=== PATIENT | female | born 2000 | race Two or more races ===

== ENCOUNTER 2025-02-19 17:50 | Emergency (ER) | payer OTHER ==
[~2025-02-19] VITALS: Ht 162.6 cm; Wt 77.1 kg
[2025-02-19] MEDS ORDERED: CEFUROXIME500 MG PO (19:54)
[2025-02-19] MEDS ORDERED: PEPCID AC20 MG PO (19:54)
[2025-02-19] MEDS ORDERED: KETOROLAC TROMETHAMINE 60 MG VIAL IM ONE ×2 (19:58→20:00)
[2025-02-19] MEDS ORDERED: CEFTRIAXONE SODIUM 1,000 MG VIAL ONE (19:58)
[2025-02-19] MEDS ORDERED: CEFTRIAXONE SODIUM 1,000 MG VIAL IM ONE (20:00)
[2025-02-19] MEDS ORDERED: TETANUS & DIPHTHERIA TOX,ADULT 0.5 ML VIAL IM ONE (20:00)
== END 2025-02-19 20:13 | disposition home or self-care (01) ==
LOC: ER 17:51
DX: S60.410A Abrasion of right index finger, initial encounter (principal); W54.0XXA Bitten by dog, initial encounter; Y93.89 Activity, other specified; Y92.89 Other specified places as the place of occurrence of the external cause
CPT/HCPCS: 90471; 90714; J1670

== ENCOUNTER 2025-06-16 07:05 | Emergency (ER) | payer OTHER ==
[~2025-06-16] VITALS: Ht 162.6 cm; Wt 77.1 kg
[~2025-06-16 07:05] MED LIST: CEFUROXIME500 MG PO; PEPCID AC20 MG PO
[2025-06-16] MEDS ORDERED: PHENYLEPHRINE HC OP (07:53)
[2025-06-16] MEDS ORDERED: FAMOtidine 10 MG/ML (4ML VIAL) IV ONE (08:30)
[2025-06-16] MEDS ORDERED: ONDANSETRON HCL 2 MG/ML VIAL IV ONE (08:30)
[2025-06-16] MEDS ORDERED: 0.9 % SODIUM CHLORIDE 1,000 ML IV ONE (08:30)
[2025-06-16 09:18] LABS: BASO % 0.3 % (0.1-1.2); EOS # 0.02 (0.04-0.54); EOS % 0.3 % (0.7-7.0); LYMPH # 1.59 (1.18-3.74); LYMPH % 25.2 % (19.3-53.1); MEAN PLATELET VOLUME 9.40 fl (9.4-12.4); MONO # 0.49 (0.24-0.82); MONO % 7.8 % (4.7-12.5); NEUT # 4.17 (1.56-6.13); NEUT % 66.2 % (34.0-71.1); RED CELL DISTRIBUTION WIDTH 12.5 % (11.6-14.4)
[2025-06-16 09:55] LABS: URINE APPEARANCE Clear; URINE BILIRRUBIN Negative (NEGATIVE); URINE BLOOD Negative; URINE COLOR Yellow; URINE GLUCOSE Negative (NEGATIVE); URINE KETONE 15 (NEGATIVE); URINE LEUKOCYTE Negative; URINE NITRATE Negative; URINE PROTEIN Negative (NEGATIVE); URINE UROBILINOGEN 1.0 E.U./dl
[2025-06-16 09:56] LABS: URINE BACTERIA 143.9 uL (0.0-1933); URINE CAST 0.29 uL (0.0-1.40); URINE EPITHELIAL CELLS 7.5 uL (0.0-38.8); URINE RBC 2.3 uL (0.0-20.8); URINE WBC 2.1 uL (0.0-23.2)
[2025-06-16 10:01] LABS: ALT/SGPT 22.0 U/L (12-78); AST/SGOT 21.0 U/L (15-37); BILIRUBIN TOTAL 0.26 mg/dL (0.3-1.2); BUN CREA RATIO 13.0 (7.0-25.0); CREATININE SERUM 0.84 mg/dL (0.55-1.02); GFR 83.3; GLOBULINA 3.9 G/DL (2.4-3.5); GLUCOSE FASTING 86.0 mg/dL (65-100); OSMOLALITY SERUM 284.0 MOSM/KG (275-295)
[2025-06-16 10:11] LABS: COVID-19 AG NEGATIVE (NEGATIVE)
[2025-06-16] MEDS ORDERED: PROBIOTIC1 EAC2 PO (10:41)
[2025-06-16] MEDS ORDERED: ZOFRAN8 MG PO (10:41)
== END 2025-06-16 12:25 | disposition home or self-care (01) ==
LOC: ER 07:05
PROVIDERS: General Practice
DX: R19.7 Diarrhea, unspecified (principal); R11.2 Nausea with vomiting, unspecified; K64.8 Other hemorrhoids; Z20.822 Contact with and (suspected) exposure to COVID-19